=== PATIENT | female | born 1970 | race Caucasian/White ===

== ENCOUNTER → 2016-11-16 | Outpatient (REF) | payer BC ==
[2016-11-16 15:01] LABS: FREE T4 1.24 NG/DL (0.76-1.46)
== END ==
LOC: M LABDRAW1 13:37
PROVIDERS: ATTEND Internal Medicine Endocrinology, Diabetes & Metabolism
DX: C73 Malignant neoplasm of thyroid gland (principal)

== ENCOUNTER → 2016-11-19 | Outpatient (CLI) | payer BC | LOC: M LAB 16:57 | PROVIDERS: ATTEND Internal Medicine Endocrinology, Diabetes & Metabolism | DX: E89.0 Postprocedural hypothyroidism (principal) ==

== ENCOUNTER → 2017-12-30 | Outpatient (REF) | payer BC ==
[2017-12-30 15:10] LABS: FREE T4 1.46 NG/DL (0.76-1.46)
[2017-12-30 15:10] LABS: THYROID STIMULATING HORMONE 0.012 uIU/ML (0.358-3.740)
[2017-12-31 14:15] LABS: THRYOGLOBULIN ANTIBODIES (ATA) < 1.0 IU/mL (0.0-0.9); THYROGLOBULIN QUANTITATIVE < 0.1 ng/mL (1.5-38.5)
== END ==
LOC: M LABDRAW1 13:43
DX: C73 Malignant neoplasm of thyroid gland (principal)
CPT/HCPCS: 84443

== ENCOUNTER → 2018-03-02 | Outpatient (REF) | payer BC ==
[2018-03-02 14:31] LABS: FREE T4 1.58 NG/DL (0.76-1.46); THYROID STIMULATING HORMONE 0.014 uIU/ML (0.358-3.740)
== END ==
LOC: M LABDRAW1 12:35
DX: E89.0 Postprocedural hypothyroidism (principal)

== ENCOUNTER → 2018-03-02 | Outpatient (REF) | payer BC ==
[2018-03-02 14:07] LABS: ALBUMIN/GLOBULIN RATIO 1.54 (1.00-1.93); ALKALINE PHOSPHATASE 63 U/L (45-117); ALT/SGPT 28 U/L (12-78); ANION GAP 6 MEQ/L (8-16); AST/SGOT 17 U/L (7-37); BILIRUBIN,TOTAL 0.5 MG/DL (0.2-1.0); BLOOD UREA NITROGEN 13 MG/DL (7-18); CALCIUM LEVEL 9.5 MG/DL (8.5-10.1); CARBON DIOXIDE LEVEL 31 MEQ/L (21-32); CHLORIDE LEVEL 105 MEQ/L (98-107); CHOLESTEROL LEVEL 204 MG/DL (<200); GLOMERULAR FILTRATION RATE > 60.0 (>58); GLUCOSE, FASTING 87 MG/DL (70-100); HDL CHOLESTEROL 85 MG/DL (>40); LDL CHOLESTEROL 107 MG/DL (<100); NON-HDL-C 119 MG/DL; POTASSIUM SERUM 3.8 MEQ/L (3.5-5.1); SODIUM LEVEL 142 MEQ/L (136-145); TOTAL PROTEIN 6.6 GM/DL (6.4-8.2); TRIGLYCERIDES LEVEL 62 MG/DL (<150)
== END ==
LOC: M LABDRAW1 12:40
DX: Z13.9 Encounter for screening, unspecified (principal)

== ENCOUNTER → 2018-06-09 | Outpatient (REF) | payer BC ==
[2018-06-09 13:19] LABS: FREE T4 1.77 NG/DL (0.76-1.46); THYROID STIMULATING HORMONE 0.041 uIU/ML (0.358-3.740)
[2018-06-10 11:29] LABS: THRYOGLOBULIN ANTIBODIES (ATA) < 1.0 IU/mL (0.0-0.9); THYROGLOBULIN QUANTITATIVE < 0.1 ng/mL (1.5-38.5)
== END ==
LOC: M LABDRAW1 11:57
PROVIDERS: ATTEND Nurse Practitioner Family
DX: E89.0 Postprocedural hypothyroidism (principal)

== ENCOUNTER → 2018-09-06 | Outpatient (REF) | payer BC ==
[2018-09-06 18:17] LABS: FREE T4 1.34 NG/DL (0.76-1.46); THYROID STIMULATING HORMONE 0.195 uIU/ML (0.358-3.740)
== END ==
LOC: M LABDRAW1 16:55
PROVIDERS: ATTEND Nurse Practitioner Family
DX: E89.0 Postprocedural hypothyroidism (principal)

== ENCOUNTER → 2019-03-07 | Outpatient (CLI) | payer BC ==
[2019-03-07 14:53] LABS: FREE T4 1.14 NG/DL (0.76-1.46); THYROID STIMULATING HORMONE 1.44 uIU/ML (0.358-3.740)
== END ==
LOC: M LAB 13:17
PROVIDERS: ATTEND Internal Medicine Endocrinology, Diabetes & Metabolism
DX: E89.0 Postprocedural hypothyroidism (principal)

== ENCOUNTER 2019-05-23 08:21 | Emergency (ER) | payer BC ==
[~2019-05-23] VITALS: Ht 165.1 cm; Wt 63.6 kg
[2019-05-23] MEDS ORDERED: NS 500 ML IV ONE ×2 (08:30→10:15)
[2019-05-23] MEDS ORDERED: LORazepam 2 MG/ML VIAL (J2060) IV STA (08:37)
[2019-05-23] MEDS ORDERED: LORazepam 2 MG/ML VIAL (J2060) As Ordered ONE (08:54)
[2019-05-23 09:29] LABS: BASO % 0.6 % (0.0-1.0); EOS # 0.1 10^3/uL (0.0-0.5); EOS % 1.8 % (0.0-3.0); HEMATOCRIT 42.7 % (36.0-47.0); HEMOGLOBIN 14.2 g/dl (12.0-15.5); LYMPH # 1.7 10^3/uL (1.5-5.0); LYMPH % 52.1 % (24.0-44.0); MEAN CORPUSCULAR HEMOGLOBIN 30.8 pg (27.0-33.0); MEAN CORPUSCULAR HGB CONC 33.3 g/dl (32.0-36.5); MEAN CORPUSCULAR VOLUME 92.6 fl (80.0-96.0); MONO # 0.3 10^3/uL (0.0-0.8); MONO % 8.4 % (0.0-5.0); NEUTROPHILS # 1.2 10^3/uL (1.5-8.5); NEUTROPHILS % 36.5 % (36.0-66.0); PLATELET COUNT, AUTOMATED 180 10^3/uL (150-450); RED BLOOD COUNT 4.61 10^6/uL (4.00-5.40); WHITE BLOOD COUNT 3.3 10^3/uL (4.0-10.0)
[2019-05-23 09:51] LABS: ALBUMIN 4.2 GM/DL (3.2-5.2); ALT/SGPT 22 U/L (12-78); BILIRUBIN,DIRECT < 0.1 MG/DL (0.0-0.2); BILIRUBIN,TOTAL 0.4 MG/DL (0.2-1.0); CK-MB VALUE MASS < 1.0 NG/ML (<3.6); CPK CREATINE PHOSPHOKINASE 46 U/L (26-192); FREE T4 1.42 NG/DL (0.76-1.46); LIPASE 108 U/L (73-393); MB/CK RELATIVE INDEX 2.17 (< OR =4); TOTAL PROTEIN 7.4 GM/DL (6.4-8.2); TROPONIN I < 0.02 NG/ML (< 0.10)
--- NOTE | 2019-05-23 09:59 | REP ---
CT of the brain without IV contrast: There are no comparisons. There is no hemorrhage. There is no edema, mass effect or midline shift. Ventricles are normal size. The cortical stripe is unremarkable. The visualized paranasal sinuses and mastoid air cells are clear. Impression: Essentially negative CT study of the brain. Electronically Signed by Paresh Murphy MD 05/23/2019 09:50 A
[2019-05-23] MEDS ORDERED: SYNT88TA2 PO (10:01)
[2019-05-23] MEDS ORDERED: POTASSIUM CHLORIDE 10 MEQ SR TABLET PO ONE (10:15)
[2019-05-23 10:45] VITALS: BP 125/73
--- NOTE | 2019-05-23 18:27 | ECGEPIP ---
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
== END 2019-05-23 11:05 | disposition home or self-care (01) ==
LOC: M ED 08:21
DX: R55 Syncope and collapse (principal); E87.6 Hypokalemia; R42 Dizziness and giddiness
CPT/HCPCS: 70450; 80047; 80076; 81001; 82550; 82553; 83690; 84439; 84443; 84484; 84702; 85025; 93005; 93041; 94760; 96361; 96374; 96375; 99285; J2060

== ENCOUNTER → 2020-12-03 | Outpatient (CLI) | payer BC ==
[~2020-12-03] MED LIST: SYNT88TA2 PO
[2020-12-03 13:17] LABS: FREE T4 1.05 NG/DL (0.76-1.46); THYROID STIMULATING HORMONE 0.966 uIU/ML (0.358-3.740)
== END ==
LOC: M LAB 12:07
PROVIDERS: ATTEND Nurse Practitioner Family
DX: E89.0 Postprocedural hypothyroidism (principal)